=== PATIENT | male | born 1970 | race Caucasian/White ===

== ENCOUNTER → 2017-12-07 10:15 | Outpatient (CLI) | payer BC, SELFPAY ==
--- NOTE | 2017-12-07 10:20 | XR_ITS ---
XR chest 2V HISTORY: ITS.REASON: BRONCHITIS ORDERING PHYSICIAN: Rowan Pepe PATIENT AGE: 47 years COMPARISON: None available FINDINGS: The cardiomediastinal silhouette and pulmonary vascularity are within normal limits. The lungs are clear without infiltrates, suspicious nodules, or pleural effusions. There is a oval-shaped hyperdensity to the left of T7 and T8 as seen on the frontal view and may represent a partially calcified hilar lymph nodes. No acute bony abnormalities. IMPRESSION: No acute finding. Probable partially calcified left hilar lymph node
== END ==
PROVIDERS: PCP Nurse Practitioner; Visit Provider Nurse Practitioner
DX: J40 Bronchitis, not specified as acute or chronic (principal)
CPT/HCPCS: 71046

== ENCOUNTER → 2017-12-18 09:46 | Outpatient (CLI) | payer BC, SELFPAY ==
--- NOTE | 2017-12-18 11:10 | CT_ITS ---
CT chest wo con Ordering Physician: Rowan Pepe Patient Age: 47 years: Male HISTORY: ITS.REASON: CALCIFIED LYMPH NODESlung density noted on recent plain film. Cough TECHNIQUE: Helical CT scanning performed through the chest. No oral nor IV contrast utilized. COMPARISON :PA and lateral chest 12/07/2017 FINDINGS Lungs appear clear with no acute infiltrate nor lesion. . Question minor hyperexpansion on this study.. No history of smoking noted on provided history sheet. Normal to upper normal thickness central airways. There is a tiny less than 2.5 mm focus along the posterior trachea axial image 24,. Also small flat area of density on posterior trachea on axial image 19. Most likely this reflects some minor mucoid material ; but if cough should persist and progress might possibly consider pulmonary consult and follow-up. These subtle densities along posterior trachea also seen on sagittal image 45qq, 47. . No significant lung nodules or lesions. No focal infiltrate. No pleural effusions. No pneumothorax. Chest wall unremarkable. Ribs appear satisfactory. Mediastinum. Generous 2 cm height x 14 mm transverse calcified node just inferior base of left richard noted..-This does not impact the airway and thus would not contribute to the patient's cough. It is located just to left esophagus esophagus/posterior to the left atria... Compatible with old granulomatous lymph node. No associated findings Scattered small & moderate reactive mediastinal lymph nodes otherwise seen with no significant adenopathy. Largest node at the precarinal region measuring 14 x 7 mm.. Other scattered smaller nodes AP window and paratracheal Great vessels unremarkable on this noncontrast study. Heart is normal in size. Chest wall and ribs unremarkable... T-spine intact . Mild gynecomastia noted. Bilateral. No axillary adenopathy. Uppermost abdomen images unremarkable IMPRESSION 1...No acute findings in the chest. No pneumonia. No lung lesions. 2. A few tiny densities along the dependent, posterior aspect of the trachea-most likely reflecting mucoid material, as described in text.. 3.. A generous 2 cm calcified node inferior to the base the left richard. Not of concern & reflect old granuloma this disease. It does not impact airway and thus would not contribute to cough..
[2017-12-18 12:16] VITALS: PULSE 65; PULSE 68
== END ==
PROVIDERS: Family Provider Family Medicine; PCP Nurse Practitioner; Visit Provider Nurse Practitioner
DX: J45.909 Unspecified asthma, uncomplicated (principal); J40 Bronchitis, not specified as acute or chronic; R53.83 Other fatigue; I89.8 Other specified noninfective disorders of lymphatic vessels and lymph nodes
CPT/HCPCS: 71250; 94060; 94640; 94727; 94729